=== PATIENT | male | born 2000 | race Caucasian/White ===

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

== ENCOUNTER 2024-04-20 14:15 | Emergency (ER) | payer OTHER, SELFPAY ==
[2024-04-20 14:16] VITALS: BP 137/93; PULSE 108; RESP 16; TEMP 36.6; O2SAT 99; BMI 25.2
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
[2024-04-20 15:19] LABS: Absolute Lymphocyte Count 1.58 X10^3/uL (0.83-4.51); Absolute Neutrophil Count 4.3 X10^3/uL (2.0-7.7); Basophil# 0.06 X10^3/uL; Basophil% 0.9 % (0-1); Eosinophil# 0.03 X10^3/uL; Eosinophils% 0.5 % (0-5); Hematocrit 42.9 % (40-54); Hemoglobin 15.7 g/dL (13.0-16.5); Lymphocyte # 1.58 X10^3/ul (0.83-4.51); Lymphocyte % 24.5 % (19-41); Mean Corp Hgb Conc 36.6 g/dL (32-36); Mean Corpuscular Hgb 33.3 pg (27.0-32.0); Mean Corpuscular Volume 91.1 fL (80-94); Mean Platelet Vol. 8.5 fl (6.2-12.0); Monocyte# 0.43 X10^3/uL; Monocyte% 6.7 % (0-10); NRBC Flagged by Analyzer 0 % (0-5); Neutrophil # 4.33 X10^3/uL (2.7-7.7); Neutrophil % 66.9 % (47-70); Platelet Count 311 K/mm3 (150-450); RBC Distribution Width CV 11.9 % (11.6-14.6); RBC Distribution Width SD 39.2 fl (35.1-43.9); Red Blood Count 4.71 M/mm3 (4.6-6.2); White Blood Count 6.5 K/mm3 (4.4-11.0)
[2024-04-20 15:33] LABS: Anion Gap 8 (5-15); BUN 10 mg/dL (7-18); BUN/Creat Ratio 9.6 RATIO (10-20); Calcium,Total 8.7 mg/dL (8.5-10.1); Chloride 111 mmol/L (98-107); Creatinine, Serum 1.04 mg/dL (0.70-1.30); EST Glomerular Filtration Rate 94 mL/min (>60); Est Glom Filt Rate - Afr Amer 114 mL/min (>60); Estimated Creatinine Clearance 114.06 ml/min; Glucose 127 mg/dL (74-106); Potassium 3.5 mmol/L (3.5-5.1); Sodium Level 143 mmol/L (136-145)
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
[2024-04-20 15:54] LABS: AST(SGOT) 34 U/L (15-37); Alanine Aminotransfer ALT/SGPT 33 U/L (16-61); Albumin, Serum 4.2 g/dL (3.2-5.0); Alkaline Phosphatase 75 U/L (45-117); Bilirubin, Direct 0.14 mg/dL (0.00-0.30); Globulin 3.6 g/dL (2.2-4.2); Protein, Total 7.8 g/dL (6.4-8.2)
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
[2024-04-20 16:41] LABS: Amphetamine Urine VISTA NEGATIVE (<1000 ng/mL); Barbiturate Urine VISTA NEGATIVE (< 200 ng/mL); Benzodiazepine Urine VISTA NEGATIVE (< 200 ng/mL); Cocaine Urine VISTA NEGATIVE (< 300 ng/mL); Ecstacy Urine VISTA NEGATIVE (< 500 ng/mL); Methadone Urine VISTA NEGATIVE (< 300 ng/mL); PCP Urine VISTA NEGATIVE (< 25 ng/mL); THC Urine VISTA POSITIVE (< 50 ng/mL); Vista UDS pH Range 6
[2024-04-20] MEDS: Ibuprofen 600 MG Tablet PO (17:32)
--- NOTE | 2024-04-20 17:35 | CM.ED ---
Social Work: Patient granted consent for clinical social work therapist to meet with patient's father alone. whiting can worker spoke with Mr. Donato who denied knowledge of any previous suicide attempt by patient any only became aware that patient had been cutting today. Mr. Donato stated his son is an alcoholic, got his license taken away at the time patient got a DUI and patient never sought to get it re-instated and has only been driving with a temp. Patient was pulled over the other day and was cited for driving without a license and now has a court hearing on Sunday of this week. Mr. Donato confirmed with patient's brother Serg that Serg owns guns which Serg will take out of the house and to his twin brother's house effective today. Patient's mother is currently in [place]. Mr. Donato stated it is his opinion that patient is capable of killing himself and does not feel safe with patient returning home. Gemma Ivey, AIR INTELLIGENCE SPECIALIST, DIVIDEND CLERK
--- NOTE | 2024-04-20 17:45 | CM.ED ---
Social Work: chore worker met again with patient and patient's father and confirmed the plan for social problems specialist to seek a dual diagnosis placement for patient that can treat patient's substance abuse as well as mental health. chore worker explained to patient that he will not be going home. Patient cried and stated he wanted to go home but was understandable and agreeable. Gemma Ivey, SERVICE STATION MANAGER, BLEACHING MACHINE OPERATOR
[2024-04-20 18:15] VITALS: BP 129/61; PULSE 97; RESP 19; O2SAT 100
--- NOTE | 2024-04-20 18:50 | CM.ED ---
Social Work: painting and coating worker made phone contact with [facility] who reported to have an open bed to treat dual diagnoses. painting and coating worker faxed over referral packet for review and determination of acceptance or not. Gemma Ivey, SUPERVISOR SILVERING DEPARTMENT, WIDE AREA NETWORK SYSTEMS ADMINISTRATOR
--- NOTE | 2024-04-20 19:55 | CM.ED ---
Social Work: emergency worker received phone contact from Roberta at [facility] who requested an updated blood alcohol level from patient as they would like for it to be at least 150 or below before they will consider accepting patient. emergency worker updated charge nurse who reported they that will do this at midnight as it will take that long for patient's blood alcohol to get to that number. emergency worker updated patient who was tearful and stated he wanted to go home and was tired of being stuck in the ED. emergency worker provided encouragement and support. Gemma Ivey, CREDIT NEGOTIATOR, RATE CLERK
--- NOTE | 2024-04-20 20:45 | CM.ED ---
Social Work: spool worker faxed over referral packet to the Crisis Team to take over possible placement to [facility] after new blood alcohol levels are obtained for patient. Luz Maria with Crisis stated a new psychiatric assessment will also be required to be completed with a blood alcohol of 150 or below which Crisis will also complete. Gemma Ivey, ESTATE PLANNING DIRECTOR, SCHEDULER MAINTENANCE
[2024-04-20] MEDS: LORazepam 1 MG Tablet PO (20:49)
[2024-04-20 22:00] VITALS: BP 129/78; PULSE 99; RESP 16; O2SAT 97
[2024-04-21 02:00] VITALS: BP 112/65; PULSE 95; RESP 16; O2SAT 97
[2024-04-21 06:00] VITALS: BP 127/85; PULSE 88; RESP 16; O2SAT 99
[2024-04-21 10:00] VITALS: BP 122/74; PULSE 91; RESP 16; O2SAT 99
[2024-04-21 10:56] VITALS: BP 122/74; PULSE 91; RESP 16; TEMP 36.7; O2SAT 99
== END 2024-04-21 11:01 ==
PROVIDERS: Emergency Medicine; Emergency Provider Emergency Medicine; Visit Provider Emergency Medicine
DX: F32.A Depression, unspecified (principal); F17.290 Nicotine dependence, other tobacco product, uncomplicated; R45.851 Suicidal ideations; M79.641 Pain in right hand; W22.09XA Striking against other stationary object, initial encounter
CPT/HCPCS: 73130; 80048; 80076; 80307; 82077; 85025; 99285